=== PATIENT | male | born 1960 | race Caucasian/White ===

== ENCOUNTER 2019-11-29 09:40 | Inpatient (IN) | payer OTHER ==
[~2019-11-29] VITALS: Ht 177.8 cm; Wt 75.0 kg
[2019-11-29] MEDS ORDERED: QUET300T2 PO (10:10)
[2019-11-29] MEDS ORDERED: ACETAMINOPHEN 500 MG TABLET PO ONE (10:30)
[2019-11-29] MEDS ORDERED: SODIUM CHLORIDE 0.9% 1,000 ML IV ONE (10:30)
[2019-11-29 11:14] LABS: BASOPHILS % (AUTO) 0.8 % (0.0-2.0); EOSINOPHILS % (AUTO) 2.9 % (1.0-6.0); HEMATOCRIT 46.3 % (41-53); HEMOGLOBIN 15.8 g/dL (13.5-17.5); LYMPHOCYTES # (AUTO) 1.7 K/uL (1.0-4.8); LYMPHOCYTES % (AUTO) 26.5 % (22.0-44.0); MEAN CORPUSCULAR HEMOGLOBIN 30.9 pg (26.0-34.0); MEAN CORPUSCULAR VOLUME 91 fL (80-100); MONOCYTES # (AUTO) 0.5 K/uL (0.1-1.0); MONOCYTES % (AUTO) 7.9 % (2.0-9.0); NEUTROPHILS # (AUTO) 4.1 K/uL (1.8-7.7); NEUTROPHILS % (AUTO) 61.9 % (40.0-70.0); PLATELET COUNT (AUTO) 167 K/uL (150-450); RED CELL DISTRIBUTION WIDTH 14.2 % (11.5-14.5)
[2019-11-29 11:24] LABS: ANION GAP 6 mmol/L (8-16); CALCIUM, TOTAL 8.7 mg/dL (8.8-10.5); CARBON DIOXIDE 27 mmol/L (22-29); CHLORIDE 104 mmol/L (98-107); CREATININE 0.99 mg/dL (0.60-1.30); GLOMERULAR FILTR. RATE CALC > 60 mL/min (>60); GLUCOSE,RANDOM 129 mg/dL (70-110); SODIUM SERUM 137 mmol/L (136-145); UREA NITROGEN, BLOOD 12 mg/dL (7-18)
[2019-11-29 11:33] LABS: LACTIC ACID 0.9 mmol/L (0.4-2.0)
[2019-11-29 11:41] LABS: B-TYPE NATRIURETIC PEPTIDE 14 pg/mL (0-100)
[2019-11-29 11:42] LABS: ALANINE AMINOTRANSFERASE 27 U/L (12-78); ALBUMIN 3.4 g/dL (3.4-5.0); ALKALINE PHOSPHATASE 68 U/L (46-116); ASPARTATE AMINOTRANSFERASE 17 U/L (15-37); BILIRUBIN,TOTAL 0.7 mg/dL (0.1-1.0); FERRITIN 269 ng/mL (26-388); LACTATE DEHYDROGENASE 150 U/L (85-227); LIPASE 78 U/L (73-393)
[2019-11-29 11:45] LABS: C-REACTIVE PROTEIN QUANT < 0.05 mg/dL (0.00-0.30)
[2019-11-29] MEDS ORDERED: ONDANSETRON HCL 4 MG/2 ML VIAL IVP PRN (12:15)
[2019-11-29] MEDS ORDERED: 0.9% SODIUM CHLORIDE 10 ML SYRINGE IVP PRN (12:15)
[2019-11-29] MEDS ORDERED: ACETAMINOPHEN 325 MG TABLET PO PRN ×2 (12:15→16:00)
[2019-11-29 12:22] LABS: ERYTHROCYTE SEDIMENTATION RATE 4 MM/HR (0-15)
[2019-11-29 14:19] VITALS: BP 124/71
[2019-11-29] MEDS ORDERED: GuaiFENesin/D-METHORPHAN [SUGAR-FREE] 200-20MG/10 ML SYRUP UDCUP PO PRN (16:00)
[2019-11-29] MEDS ORDERED: MAGNESIUM HYDROXIDE SUSPENSION 30 ML UDCUP PO PRN (16:00)
[2019-11-29] MEDS ORDERED: NICOTINE 14 MG/24 HOUR PATCH TD PRN (16:00)
[2019-11-29] MEDS ORDERED: CloNIDine HCL 0.1 MG TABLET PO PRN (16:00)
[2019-11-29] MEDS ORDERED: LOPERAMIDE HCL 2 MG CAPSULE PO PRN (16:00)
[2019-11-29] MEDS ORDERED: ONDANSETRON HCL 4 MG TABLET PO PRN (16:00)
[2019-11-29] MEDS ORDERED: DOCUSATE SODIUM 100 MG CAPSULE PO PRN (16:00)
[2019-11-29] MEDS ORDERED: ALBUTEROL SULFATE HFA 90 MCG/PUFF 8 GM INHALER IH PRN (16:00)
[2019-11-29] MEDS ORDERED: MAG HYDROX/AL HYDROX/SIMETH ES 30 ML SUSPENSION UDCUP PO PRN (16:00)
[2019-11-29] MEDS ORDERED: PETROLATUM,WHITE 28 GM JELLY TP PRN (16:00)
[2019-11-29 21:25] VITALS: BP 131/82
[2019-11-30 04:59] VITALS: BP 131/84
[2019-11-30] MEDS: IBUPROFEN 400 MG TABLET PO PRN (05:08)
[2019-11-30 08:04] LABS: BASOPHILS % (AUTO) 0.9 % (0.0-2.0); EOSINOPHILS % (AUTO) 3.7 % (1.0-6.0); HEMATOCRIT 46.7 % (41-53); HEMOGLOBIN 15.9 g/dL (13.5-17.5); LYMPHOCYTES # (AUTO) 2.5 K/uL (1.0-4.8); LYMPHOCYTES % (AUTO) 35.2 % (22.0-44.0); MEAN CORPUSCULAR HGB CONC 34.1 G/dL (31.0-37.0); MEAN CORPUSCULAR VOLUME 91 fL (80-100); MONOCYTES # (AUTO) 0.5 K/uL (0.1-1.0); MONOCYTES % (AUTO) 6.9 % (2.0-9.0); NEUTROPHILS # (AUTO) 3.7 K/uL (1.8-7.7); NEUTROPHILS % (AUTO) 53.3 % (40.0-70.0); PLATELET COUNT (AUTO) 164 K/uL (150-450); RED BLOOD CELL COUNT(AUTO) 5.14 MIL/uL (4.50-5.90); RED CELL DISTRIBUTION WIDTH 14.1 % (11.5-14.5)
[2019-11-30 08:28] LABS: ALANINE AMINOTRANSFERASE 22 U/L (12-78); ALKALINE PHOSPHATASE 60 U/L (46-116); ANION GAP 9 mmol/L (8-16); ASPARTATE AMINOTRANSFERASE 15 U/L (15-37); BILIRUBIN,TOTAL 0.6 mg/dL (0.1-1.0); CALCIUM, TOTAL 8.5 mg/dL (8.8-10.5); CARBON DIOXIDE 30 mmol/L (22-29); CHLORIDE 102 mmol/L (98-107); CREATININE 0.96 mg/dL (0.60-1.30); GLOMERULAR FILTR. RATE CALC > 60 mL/min (>60); GLUCOSE,RANDOM 107 mg/dL (70-110); POTASSIUM 3.8 mmol/L (3.5-5.1); SODIUM SERUM 141 mmol/L (136-145); TOTAL PROTEIN, SERUM 6.4 g/dL (6.4-8.2); UREA NITROGEN, BLOOD 12 mg/dL (7-18)
[2019-11-30 08:29] VITALS: BP 127/80
[2019-11-30 15:47] VITALS: BP 122/82
[2019-11-30 19:40] VITALS: BP 121/80
[2019-11-30] MEDS: QUEtiapine FUMARATE 50 MG ER TABLET PO SCH (21:05)
[2019-12-01 03:55] VITALS: BP 112/72
[2019-12-01] MEDS: QUEtiapine FUMARATE 50 MG ER TABLET PO SCH ×2 (08:28→21:49)
[2019-12-01 08:50] VITALS: BP 133/73
[2019-12-01 15:41] VITALS: BP 116/81
[2019-12-01 20:11] VITALS: BP 118/73
[2019-12-01] MEDS: RisperiDONE 2 MG TABLET PO SCH (21:38)
[2019-12-02] MEDS: IBUPROFEN 400 MG TABLET PO PRN (03:05)
[2019-12-02] MEDS ORDERED: KETOROLAC TROMETHAMINE 30 MG/ML VIAL IM ONE (04:15)
[2019-12-02] MEDS ORDERED: KETOROLAC TROMETHAMINE 30 MG/ML VIAL IVP ONE (04:30)
[2019-12-02 05:45] VITALS: BP 123/69
[2019-12-02 08:20] VITALS: BP 113/73
[2019-12-02] MEDS: RisperiDONE 1 MG TABLET PO SCH (08:36)
[2019-12-02] MEDS: QUEtiapine FUMARATE 50 MG ER TABLET PO SCH ×2 (08:36→20:35)
[2019-12-02 16:09] VITALS: BP 113/78
[2019-12-02] MEDS: RisperiDONE 2 MG TABLET PO SCH (20:34)
[2019-12-02 20:45] VITALS: BP 119/75
[2019-12-03 05:06] VITALS: BP 127/73
[2019-12-03] MEDS: QUEtiapine FUMARATE 50 MG ER TABLET PO SCH (08:25)
[2019-12-03] MEDS: RisperiDONE 1 MG TABLET PO SCH (08:25)
[2019-12-03 08:28] VITALS: BP 113/68
[2019-12-03] MEDS ORDERED: RISP0.5T20 PO (10:58)
[2019-12-03] MEDS ORDERED: RISP1TAB27 PO (10:58)
[2019-12-03] MEDS ORDERED: RisperiDONE 1 MG TABLET PO ONE (15:45)
== END 2019-12-03 16:10 | DRG 153 ==
LOC: EMS 09:46 → 6S 13:14
PROVIDERS: ADMIT Internal Medicine; ATTEND Internal Medicine
DX: J06.9 Acute upper respiratory infection, unspecified (principal); F31.4 Bipolar disorder, current episode depressed, severe, without psychotic features; F43.10 Post-traumatic stress disorder, unspecified; R19.7 Diarrhea, unspecified; Z20.828 Contact with and (suspected) exposure to other viral communicable diseases
CPT/HCPCS: 82728; 83036; 83605; 83615; 85651; 86140; 93005; J1885; J7030; 36415-L1; 36415-TC; 71045-TC; U0003-CS